=== PATIENT | male | born 1995 | race Caucasian/White ===

== ENCOUNTER 2023-07-06 22:33 | Emergency (ER) | payer SELFPAY ==
[~2023-07-06] VITALS: Ht 180.3 cm; Wt 81.6 kg
[2023-07-06] MEDS ORDERED: KETOROLAC TROMETHAMINE INJ 30 MG/ML VIAL ONE (22:59)
[2023-07-06] MEDS ORDERED: GUAIFENESIN/D-METHORPHAN HB 5 ML UDC ONE (22:59)
[2023-07-06] MEDS ORDERED: ACETAMINOPHEN ES 500 MG TABLET ONE (22:59)
[2023-07-06] MEDS: GUAIFENESIN/D-METHORPHAN HB 5 ML UDC PO ONE (23:06)
[2023-07-06] MEDS: KETOROLAC TROMETHAMINE INJ 30 MG/ML VIAL IM ONE (23:06)
[2023-07-06] MEDS: ACETAMINOPHEN ES 500 MG TABLET PO ONE (23:06)
[2023-07-07 00:45] VITALS: BP 138/98; TEMP 100; O2SAT 99
== END 2023-07-07 00:45 | disposition home or self-care (01) ==
LOC: ER 22:41
DX: B34.9 Viral infection, unspecified (principal)
CPT/HCPCS: 99283; 96372; J1885